=== PATIENT | male | born 1975 | race Caucasian/White ===

== ENCOUNTER 2021-12-27 12:14 | Emergency (ER) | payer OTHER, SELFPAY ==
[2021-12-27 12:15] VITALS: BP 238/189; PULSE 150; RESP 18; TEMP 36.8; O2SAT 99; BMI 25.1
--- NOTE | 2021-12-27 13:09 | CT_ITS ---
EXAM: CT MAXILLOFACIAL WITHOUT INTRAVENOUS CONTRAST CLINICAL INDICATION: Trauma TECHNIQUE: Helically acquired images were obtained of the face without intravenous contrast. This CT exam was performed using one or more of the following dose reduction techniques: automated exposure control, adjustment of the mA and/or kV according to patient size, and/or use of iterative reconstruction technique. This report was created using [employer] report generation technology. COMPARISON: None. FINDINGS: BONES/JOINTS: There is a slightly hyperdense structure along the left mandible with small collections of gas that measures 3.8 x 1.2 x 1.8 cm possibly representing packing material. No displaced fracture. No discrete lytic or blastic abnormalities. SOFT TISSUES: Unremarkable. No focal subcutaneous swelling. No discrete fluid collections. ORBITS: Unremarkable. Both globes are unremarkable. Extraocular muscles are normal. Retrobulbar fat appears unremarkable. SINUSES: Unremarkable as visualized. Clear. MASTOID AIR CELLS: Unremarkable as visualized. Clear. DENTAL: No acute findings. No periodontal osseous erosion. CT/Sinus/Facial Bone IMPRESSION: 1. No acute osseous abnormalities. 2. Slightly hyperdense porous structure along the lateral aspect of the left mandible anteriorly which may represent packing material. Correlation with physical examination may be beneficial. Electronically Signed: Levi Felton MD at 13:53 EDT ,
--- NOTE | 2021-12-27 13:17 | EX.ED.GENINJ ---
HPI History of Present Illness Chief Complaint: Trauma Onset/Context/Timing Onset: Today Mechanism/Context: other Quality of Pain: Sharp Location: Face Worsened by: Nothing Relieved by: Nothing Associated Symptoms Associated Symptoms: Negative for Parasthesias, Weakness, Loss of function, Inability to ambulate or Loss of consciousness Narrative Narrative: Patient presents with facial lacerations that occurred today. Patient states he was using a chainsaw when it kicked back and hit him in the face. Patient denies any loss of consciousness. Patient is unsure of his last tetanus. Patient states it hit him in his nose and forehead. Patient denies any visual changes. Patient denies any nausea or vomiting. Patient denies any paresthesias or weakness. Patient denies any neck or back pain. Tetanus Immunization: Unknown [facility] Medical History (Updated 12/27/21 @ 15:[address] Eliecer Meraz DO) Hemorrhoids HTN (hypertension) Allergy/AdvReac Type Severity Reaction Status Date / Time acetaminophen [From Vicodin] Allergy unknown Verified 12/27/21 12:15 cephalexin [From Keflex] Allergy unknown Verified 12/27/21 12:15 erythromycin base Allergy unknown Verified 12/27/21 12:15 hydrocodone [From Vicodin] Allergy unknown Verified 12/27/21 12:15 Family History Other Cancer Surgical History (Updated 12/27/21 @ 13:[address] Eliecer Meraz DO) History of nasal surgery Hx of arthroscopic knee surgery Hx of tonsillectomy Social History Smoking Status: Never smoker Smokeless tobacco user: chewing tobacco alcohol intake: current alcohol intake frequency: 0-2 drinks per day Alcohol type: beer ROS ROS ED Constitutional Constitutional ED: Denies chills or fever(s) Eyes Eyes: Denies blurry vision or change in vision ENT ENT ED: Denies rhinorrhea or sore throat Cardiovascular Cardiovascular: Denies chest pain or palpitations Respiratory/Chest Respiratory/Chest: Denies cough or dyspnea Gastrointestinal Gastrointestinal: Denies nausea or vomiting Genitourinary Genitourinary ED: Denies dysuria or hematuria Musculoskeletal Musculoskeletal: Denies back pain or neck pain Integumentary Denies abscess or rash Neurologic Neurologic: Denies headache(s) or weakness Allergic/Immunologic Allergic/Immunologic ED: Denies mouth swelling or urticaria EXAM Physical Exam Const Vital Signs: 12/27/21 12:15 12/27/21 12:22 12/27/21 14:17 Temperature 98.2 F Temperature Source Temporal Pulse Rate 150 H 108 H Respiratory Rate 18 16 Respiratory Effort Normal Respiratory Depth Normal Respiratory Pattern Normal Blood Pressure 238/189 H 153/95 H Blood Pressure Mean 205 114 Pulse Ox 99 100 Oxygen Delivery Method Room Air Room Air Room Air Positive well nourished and well developed General Appearance ED: well developed and NAD HEENT HEENT Narrative: There are deep linear abrasions over the forehead. There are superficial abrasions over the nose. There is minimal gapping of a short portion of the knee inferior lateral abrasion near the left eyebrow. There are no foreign bodies noted. There is minimal bleeding noted. There is no bony crepitance or step-off. There is some tenderness over this area. Nasal mucosa is pink and moist. There is no septal deviation or septal hematoma. Eyes PERRL and EOMs intact bilaterally Neck full ROM Neuro oriented x3, CN's II-XII intact bilaterally, moves all extremities, no focal motor deficits and no sensory deficits noted [place] Coma Scale: document GCS findings Spontaneous Obeys Commands Oriented 15 Sensorium / Orientation: alert Motor Exam: strength 5/5 throughout PROC Procedures Lacerations Left upper eyelid: Depth: Skin Shape: Linear Prep: Sterile Conditions Laceration repair: Irrigated, Lidocaine, Local and Wound explored Number of Sutures/[place]: 2 Suture Information: Ethilon, Simple and 5-0 Left forehead: Length: 2.5 cm Depth: Sub Q Shape: Linear Prep: Sterile Conditions and Chlorhexadine Laceration repair: Irrigated, Lidocaine, Local and Skin sutures Number of Sutures/[place]: 4 Suture Information: Ethilon, Simple and 5-0 MDM MDM MDM Narrative Medical decision making narrative: CT scan of the facial bones was obtained. There is no acute fracture. There are no foreign bodies noted. There is a 1 cm curvilinear laceration noted of the left upper eyelid. This was cleaned and irrigated with copious amounts of normal saline. This was closed with 2 simple interrupted #5-0 Ethilon sutures under sterile technique. The left forehead laceration was cleaned and irrigated with copious amounts normal saline. The wound was anesthetized 1% plain lidocaine locally. The wound was closed with 4 simple interrupted #5-0 nylon sutures under sterile technique. Patient tolerated procedure well. The abrasions to the nose and forehead were cleaned and irrigated. They were closed with Dermabond skin adhesive. Patient tolerated the procedure well. Patient was instructed to keep the wounds clean and dry. Patient was given a prescription for clindamycin. Patient was given a dose of clindamycin here. Patient was instructed to follow-up with his primary care physician in 5 to 7 days. Patient understood and was agreeable with the plan. All questions were answered. Radiography Diagnostic Testing: Clinical Impression(s) from Imaging Studies Facial/Sinus 12/27/21 13:09 IMPRESSION: 1. No acute osseous abnormalities. 2. Slightly hyperdense porous structure along the lateral aspect of the left mandible anteriorly which may represent packing material. Correlation with physical examination may be beneficial. Electronically Signed: Levi Felton MD at 13:53 EDT , Discharge Plan Triage Chief Complaint: Trauma ED Provider: Eliecer Meraz Dx/Rx/DC Orders Clinical Impression: Forehead laceration, Eyelid laceration, left, Abrasion of face Instructions: ED Abrasion, ED Head Injury (Adult), ED Laceration, Face: Skin Glue, ED Laceration Minimize Scars Primary Care Provider: Case Kiser Referrals: Case Kiser MD [Primary Care Provider] - 5 Days for suture removal Disposition Disposition: Home, Self Care
[2021-12-27] MEDS: Diphth,Pertuss(Acell),Tet Vac 0.5 ML Vial IM (13:20)
[2021-12-27] MEDS: Lidocaine 1% (20 ml mdv) 20 ML Vial INFILT (13:22)
[2021-12-27] MEDS: Lidocaine/Epi/Tetracaine 50 ML 1 APPLIC TOPICAL (13:23)
[2021-12-27 14:17] VITALS: BP 153/95; PULSE 108; RESP 16; O2SAT 100
== END 2021-12-27 15:49 | disposition home or self-care (01) ==
PROVIDERS: Emergency Provider Emergency Medicine; PCP Family Medicine; Visit Provider Emergency Medicine
DX: S01.112A Laceration without foreign body of left eyelid and periocular area, initial encounter (principal); I10 Essential (primary) hypertension; Z23 Encounter for immunization
CPT/HCPCS: 12011; 70486; 90471; 90715; 99283